=== PATIENT | male | born 1955 | race Caucasian/White ===

== ENCOUNTER → 2019-05-28 | Day surgery (SDC) | payer BC ==
[~2019-05-28] MED LIST: Propofol 200 MG/20 ML SDV IV ONE
[2019-05-28] MEDS: Lactated Ringers 1,000 ML IV SCH (07:16)
--- NOTE | 2019-05-28 12:18 | OR ---
DATE OF OPERATION: 05/28/2019 PREOPERATIVE DIAGNOSIS: FOLLOWUP POLYPS. POSTOPERATIVE DIAGNOSIS: FOLLOWUP POLYPS. SURGEON: Colton Garza MD PROCEDURE: DIAGNOSTIC COLONOSCOPY WITH SNARE POLYPECTOMY X1. 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 COMPLICATIONS: None. SPECIMEN: Rectal tubular adenoma, slightly greater than 0.5 cm. FINDINGS: 1. Full-length colonoscopy. 2. [id number] sigmoid diverticulosis. 3. Tubular adenoma, rectal vault. RECOMMENDATIONS: Followup colonoscopy in 5 years. INDICATIONS: The patient has a prior history of colon polyps removed in the past. He is due for a 5-year followup scope. DESCRIPTION OF PROCEDURE: The patient was prepped and draped, placed in the left lateral decubitus position. A lubricated Olympus colonoscope was inserted and easily advanced to the cecum. Direct visualization of the ileocecal valve was accomplished. The bowel prep was fine. Upon withdrawal of the scope, the cecum, ascending, transverse, and descending colons were completely unremarkable. The patient does have scattered diverticula throughout the sigmoid colon, mild to moderate in severity. No inflammatory change was seen. There were no sigmoid polyps, masses, ulceration, or bleeding sites. No vascular abnormalities or signs of colitis. In the rectal vault, the patient had a relatively flat tubular adenoma, small stalk on it, was greater than 0.5 cm in size, removed it with a snare and suctioned into polyp trap #1. Retroflexion showed no perianal lesions. Air was then suctioned, scope removed without complication. ILAN/SIERRA /[id number]
== END ==
LOC: CC.SDS 06:57
PROVIDERS: ATTEND Family Medicine
DX: Z12.11 Encounter for screening for malignant neoplasm of colon (principal); K63.5 Polyp of colon; K57.30 Diverticulosis of large intestine without perforation or abscess without bleeding; E11.9 Type 2 diabetes mellitus without complications; E78.5 Hyperlipidemia, unspecified; E55.9 Vitamin D deficiency, unspecified; M19.90 Unspecified osteoarthritis, unspecified site; E66.9 Obesity, unspecified; Z90.49 Acquired absence of other specified parts of digestive tract; Z68.38 Body mass index [BMI] 38.0-38.9, adult
CPT/HCPCS: 45385; J2704; J7120

== ENCOUNTER 2024-04-30 06:49 | Day surgery (SDC) | payer MEDICARE, BC ==
[2024-04-30] MEDS: Lactated Ringers 1,000 ML IV SCH (06:56)
[2024-04-30] MEDS ORDERED: fentaNYL 50 MCG/ML SDV ONE (07:25)
[2024-04-30] MEDS ORDERED: Ketamine 200 MG/20 ML MDV ONE (07:25)
[2024-04-30] MEDS ORDERED: Propofol 200 MG/20 ML SDV ONE (07:25)
== END 2024-04-30 08:48 | disposition home or self-care (01) ==
LOC: CC.SDS 06:49
PROVIDERS: ATTEND Family Medicine
DX: Z12.11 Encounter for screening for malignant neoplasm of colon (principal); K57.30 Diverticulosis of large intestine without perforation or abscess without bleeding; K64.9 Unspecified hemorrhoids; E78.5 Hyperlipidemia, unspecified; E11.9 Type 2 diabetes mellitus without complications; E66.9 Obesity, unspecified; Z79.84 Long term (current) use of oral hypoglycemic drugs; Z79.899 Other long term (current) drug therapy; Z68.36 Body mass index [BMI] 36.0-36.9, adult; Z86.0100 Personal history of colon polyps, unspecified
CPT/HCPCS: G0105; J7120; J2704; J3010; J3490